=== PATIENT | female | born 1980 | race Caucasian/White ===

== ENCOUNTER 2019-06-07 09:18 | Observation (INO) ==
[~2019-06-07 09:18] MED LIST: DEXAMETHASONE PF 10 MG/1 ML VIAL ONE; LIDOCAINE W/ SODIUM BICARB 0.5 ML SYR ONE; LIDOCAINE W/ SODIUM BICARB 0.5 ML SYR SUBD PRN; Lactated Ringers 1,000 ML PRIMARY IV ONE; Lactated Ringers 1,000 ML PRIMARY IV SCH
[2019-06-07] MEDS ORDERED: SCOPOLAMINE HYDROBROMIDE 1.5 MG - 1 EACH PATCH TRANSDERM ONE ×2 (11:05→11:20)
[2019-06-07] MEDS ORDERED: DEXAMETHASONE PF 10 MG/1 ML VIAL IVP ONE (11:05)
[2019-06-07] MEDS ORDERED: ONDANSETRON 4 MG/2 ML VIAL IVP ONE (11:05)
[2019-06-07] MEDS ORDERED: ONDANSETRON 4 MG/2 ML VIAL ONE ×2 (11:20→13:07)
[2019-06-07] MEDS ORDERED: SUCCINYLCHOLINE CHLORIDE 20 MG/1 ML - 10 ML ONE (12:16)
[2019-06-07] MEDS ORDERED: PROPOFOL 10 MG/1 ML (200 MG/20 ML) VIAL IV ONE (12:19)
[2019-06-07] MEDS ORDERED: MIDAZOLAM 5 MG/1 ML ONE (12:20)
[2019-06-07] MEDS ORDERED: fentaNYL Inj 250 MCG/5 ML VIAL ONE (12:20)
[2019-06-07] MEDS ORDERED: LIDOCAINE MPF 2% - 5 ML (20 MG/1 ML) ONE (12:20)
[2019-06-07] MEDS ORDERED: TRANEXAMIC ACID 1,000 MG / 10 ML VIAL ONE (12:28)
[2019-06-07] MEDS ORDERED: OXYMETAZOLINE 0.05% 15 ML NASAL SPRAY ONE (12:34)
[2019-06-07] MEDS ORDERED: LIDOCAINE HCL 1%/EPI 1:100,000 - 20 ML VIAL ONE (12:35)
[2019-06-07] MEDS ORDERED: Bacitracin Oint 14.2 gm tube 14 APPLIC/14.2 GM TUBE TOPICAL ONE (12:36)
[2019-06-07] MEDS ORDERED: DEXAMETHASONE PF 10 MG/1 ML VIAL ONE (13:07)
[2019-06-07] MEDS ORDERED: Clindamycin 900mg (Premix) 900 MG/50 ML BAG IV ONE ×2 (13:16→13:35)
[2019-06-07] MEDS ORDERED: HYDROcodone-APAP 5 MG -325 MG TABLET PO PRN ×2 (13:51→14:33)
[2019-06-07] MEDS ORDERED: ONDANSETRON 4 MG/2 ML VIAL IVP PRN (14:33)
[2019-06-07] MEDS: D5-1/2NS 1,000 ML PRIMARY IV SCH (16:18)
[2019-06-07] MEDS: ACETAMINOPHEN 325 MG TABLET PO PRN ×2 (16:18→20:29)
[2019-06-07] MEDS: OMEPRAZOLE 40 MG CAPSULE PO SCH (20:26)
[2019-06-08] MEDS: D5-1/2NS 1,000 ML PRIMARY IV SCH (04:28)
[2019-06-08] MEDS: ACETAMINOPHEN 325 MG TABLET PO PRN ×2 (04:28→12:38)
[2019-06-08] MEDS ORDERED: LEVOTHYROXINE 112 MCG TABLET PO SCH (05:30)
[2019-06-08 07:03] VITALS: O2SAT 93
[2019-06-08] MEDS: OMEPRAZOLE 40 MG CAPSULE PO SCH (08:16)
[2019-06-08 11:35] VITALS: BP 118/55; RESP 14; TEMP 97.9
== END 2019-06-08 14:20 | disposition home or self-care (01) ==
LOC: OR 09:18 → MED/SURG 09:18
PROVIDERS: ADMIT Otolaryngology; ATTEND Otolaryngology